=== PATIENT | female | born 1965 | race Caucasian/White ===

== ENCOUNTER 2018-10-27 17:57 | Emergency (ER) | payer BC ==
[~2018-10-27] VITALS: Ht 160 cm; Wt 75.0 kg
[2018-10-27] MEDS ORDERED: LEVO50TA5 PO (18:07)
[2018-10-27] MEDS ORDERED: PERCOCET 5MG/325MG TAB PO ONE (18:45)
[2018-10-27] MEDS ORDERED: ONDANSETRON 4 MG ORAL DISINTEGRATING TAB (Q0162 PER 1MG) PO ONE (18:45)
--- NOTE | 2018-10-27 18:52 | REP ---
Clinical: Fall. Technique: Internal rotation, external rotation, and Y view of the right shoulder. Findings: Mild arthritic changes include cortical irregularity at the acromioclavicular joint. There is no evidence for acute fracture dislocation. The glenohumeral joint is intact. The subacromial space is within normal limits. No periarticular calcifications or loose bodies identified. Impression: Mild arthritic changes. No acute fracture or dislocation. Electronically Signed by Rodrigo Leonard MD 10/27/2018 06:43 P
--- NOTE | 2018-10-27 18:53 | REP ---
Clinical: Trauma. Fall. Technique: AP, lateral, bilateral oblique views of the right wrist. Findings: A comminuted Colles' fracture of the distal radius is appreciated with overlying soft tissue swelling. The carpal bones appear grossly intact. Impression: Comminuted Colles' fracture of the distal radius. Electronically Signed by Rodrigo Leonard MD 10/27/2018 06:44 P
[2018-10-27] MEDS ORDERED: ONDA4TAB6 PO (19:56)
[2018-10-27] MEDS ORDERED: PERC5TAB12 PO (19:56)
[2018-10-27 20:05] VITALS: BP 138/78
== END 2018-10-27 20:05 | disposition home or self-care (01) ==
LOC: M ED 17:57
DX: S52.531A Colles' fracture of right radius, initial encounter for closed fracture (principal); W19.XXXA Unspecified fall, initial encounter; Y92.098 Other place in other non-institutional residence as the place of occurrence of the external cause; E03.9 Hypothyroidism, unspecified; Z88.2 Allergy status to sulfonamides; Z79.899 Other long term (current) drug therapy
CPT/HCPCS: 29125; 73030; 73110; 99283; Q0162